=== PATIENT | female | born 1935 | race Asian ===

== ENCOUNTER 2023-04-05 17:44 | Emergency (ER) | payer SELFPAY ==
[~2023-04-05] VITALS: Ht 147.3 cm; Wt 55.3 kg
--- NOTE | 2023-04-05 18:20 | NUR ---
Pt seen by MD for bedside Eval. Safety measures in place. Will continue to monitor.
[2023-04-05] MEDS ORDERED: LIDOCAINE 2%-EPI 1:100,000 20 ML VIAL ONE (18:54)
[2023-04-05] MEDS ORDERED: LIDOCAINE 2%-EPI 1:100,000 20 ML VIAL TP ONE (19:00)
[2023-04-05] MEDS ORDERED: TDAP DIPH,PERTUSS,TET VAC/PF 0.5 ML DISP.SYRIN IM ONE (19:00)
--- NOTE | 2023-04-05 19:30 | NUR ---
Received report from APARNA Bonilla.
--- NOTE | 2023-04-05 20:05 | NUR ---
Patient taken down for CT.
--- NOTE | 2023-04-05 20:15 | NUR ---
Patient back from CT.
--- NOTE | 2023-04-05 21:33 | NUR ---
Patient discharged to home in stable condition with family. A/O x 4. NAD noted. Ambulatory with a cane. Written and verbal after care instructions given. Patient verbalizes understanding of instructions. Stressed follow up or return to ER for worsening s/s. All belongings with patient and family.
[2023-04-05 21:35] VITALS: BP 155/71
== END 2023-04-05 21:32 | disposition home or self-care (01) ==
LOC: ER 17:44
DX: S01.81XA Laceration without foreign body of other part of head, initial encounter (principal); S06.360A Traumatic hemorrhage of cerebrum, unspecified, without loss of consciousness, initial encounter; W18.39XA Other fall on same level, initial encounter; Y93.89 Activity, other specified; Y92.89 Other specified places as the place of occurrence of the external cause; Y99.8 Other external cause status
CPT/HCPCS: 70450; A4663